=== PATIENT | female | born 1940 ===

== ENCOUNTER 2019-01-19 11:54 | Outpatient (CLI) | payer MEDICARE, OTHER | END 2019-01-19 11:55 | disposition home or self-care (01) | LOC: C.MAMMO 11:54 | DX: Z12.31 Encounter for screening mammogram for malignant neoplasm of breast (principal) ==

== ENCOUNTER 2019-01-21 12:17 | Outpatient (CLI) | payer MEDICARE, OTHER | END 2019-01-21 12:18 | disposition home or self-care (01) | LOC: C.DEXAIC 12:18 | DX: M81.0 Age-related osteoporosis without current pathological fracture (principal) ==